=== PATIENT | female | born 1945 | race Caucasian/White ===

== ENCOUNTER 2023-12-02 08:48 | Emergency (ER) | payer MEDICARE, OTHER ==
[~2023-12-02] VITALS: Ht 167.6 cm; Wt 103.1 kg
[2023-12-02] MEDS ORDERED: SODIUM CHLORIDE 0.9% 500 ML IV ONE (09:00)
[2023-12-02] MEDS ORDERED: GLIPIZIDE ER2.5 MG PO (09:07)
[2023-12-02] MEDS ORDERED: MYCOPHENOLATE250 MG PO (09:07)
[2023-12-02] MEDS ORDERED: PREDNISONE5 MG PO (09:07)
[2023-12-02] MEDS ORDERED: ATORVASTATIN CA20 MG PO (09:07)
[2023-12-02] MEDS ORDERED: INDAPAMIDE1.25 MG PO (09:07)
[2023-12-02] MEDS ORDERED: VITAMIN D325 MCG (09:07)
[2023-12-02] MEDS ORDERED: CYCLOSPORINE M100 MG PO (09:07)
[2023-12-02] MEDS ORDERED: LOSARTAN POTASS50 MG PO (09:07)
[2023-12-02 09:15] LABS: BASOPHILS 0.6 % (0-2); EOSINOPHILS 0.9 % (0-6); HEMATOCRIT 42.6 % (35.0-50.0); HEMOGLOBIN 13.9 g/dL (12.0-18.0); MCH 28.9 (27-36); MCHC 32.5 g/dl (30-36); MCV 88.7 fl (81-99); MONOCYTES 5.8 % (0-12); NEUTROPHILS 60.7 % (39-80); PLATELET COUNT 213 K/uL (140-440); RDW 14.6 (10.5-15.0)
[2023-12-02] MEDS ORDERED: SODIUM CHLORIDE 0.9% 1,000 ML IV ONE ×2 (09:15→09:30)
[2023-12-02] MEDS ORDERED: LIDOCAINE 2% VISCOUS 6 ML SYR TOP ONE (09:15)
[2023-12-02] MEDS ORDERED: ondansetron HCL 4 MG/2 ML VIAL ONE (09:18)
[2023-12-02 09:25] LABS: ALBUMIN 3.1 g/dL (3.4-5.0); ALBUMIN/GLOBULIN RATIO 0.86 (1.1-2.4); ANION GAP 20.4 (7-21); BILIRUBIN, TOTAL 0.8 ng/dL (0.2-1.0); BUN/CREATININE RATIO 22.8 (6.0-28.6); CALCIUM 9.6 mg/dL (8.5-10.1); CREATININE, SERUM 2.28 mg/dL (0.55-1.02); POTASSIUM 4.4 mmol/L (3.5-5.1); PROTEIN, TOTAL 6.7 g/dL (6.4-8.2)
[2023-12-02] MEDS ORDERED: CEFTRIAXONE/SODIUM CHLORIDE 2 GM/100 ML PIGGYBACK IV ONE (09:30)
[2023-12-02 09:49] LABS: LACTIC ACID, BLOOD 3.9 mmol/L (0.4-2.0)
[2023-12-02 10:03] LABS: BASE EXCESS, BLOOD GAS -17.4 mmol/L (-2-2); HCO3, BLOOD GAS 14.6 mmol/L (22-26); O2 SATURATION, BLOOD GAS 97.9 % (95.0-100.0); PCO2, BLOOD GAS 62.7 mmHg (35-45); PH, BLOOD GAS 6.97 (7.35-7.45); TOTAL CO2, BLOOD GAS 16.6
[2023-12-02] MEDS ORDERED: AMIODARONE/DEXTROSE 100 ML IV ONE (11:00)
[2023-12-02] MEDS ORDERED: ETOMIDATE 40 MG/20 ML VIAL IV ONE (11:00)
[2023-12-02] MEDS ORDERED: EPINEPHrine HCL 1 MG/10 ML SYR IV SCH (11:00)
[2023-12-02] MEDS ORDERED: ROCURONIUM BROMIDE 50 MG/5 ML VIAL IV ONE (11:00)
[2023-12-02] MEDS ORDERED: NOREPINEPHRINE BITARTRATE 250 ML IV SCH (11:00)
[2023-12-02] MEDS ORDERED: EPINEPHrine HCL 4 MG in DEXTROSE 5% 250 ML IV SCH (11:00)
[2023-12-02] MEDS ORDERED: MAGNESIUM SULFATE 1 GM/2 ML VIAL IV ONE (11:00)
[2023-12-02] MEDS ORDERED: ALTEPLASE 100 MG/100 ML VIAL IV ONE (11:00)
[2023-12-02] MEDS ORDERED: AMIODARONE HCL 150 MG/3 ML VIAL IV ONE (11:00)
[2023-12-02] MEDS ORDERED: SODIUM BICARBONATE 50 MEQ/50 ML VIAL IV ONE (11:00)
[2023-12-02 11:48] LABS: PH, VENOUS 6.895 (7.31-7.41)
[2023-12-02 11:51] LABS: BASOPHILS 1.1 % (0-2); EOSINOPHILS 0.9 % (0-6); HEMOGLOBIN 11.5 g/dL (12.0-18.0); LYMPHOCYTES 27.5 % (24-44); MCH 28.3 (27-36); MCHC 29.5 g/dl (30-36); MONOCYTES 2.4 % (0-12); NEUTROPHILS 68.1 % (39-80); PLATELET COUNT 144 K/uL (140-440); RBC 4.06 M/ul (4.3-5.7); RDW 15.4 (10.5-15.0)
[2023-12-02 12:00] LABS: PROTIME 46.4 Sec (11.2-14.2)
[2023-12-02 12:06] LABS: INR 5.15 (0.80-1.30)
[2023-12-02 12:12] LABS: ALBUMIN 2.1 g/dL (3.4-5.0); ALBUMIN/GLOBULIN RATIO 0.81 (1.1-2.4); ANION GAP 20.3 (7-21); BILIRUBIN, TOTAL 0.5 ng/dL (0.2-1.0); BUN/CREATININE RATIO 19.74 (6.0-28.6); CALCIUM 7.8 mg/dL (8.5-10.1); CREATININE, SERUM 2.38 mg/dL (0.55-1.02); MAGNESIUM 1.7 mg/dL (1.8-2.4); POTASSIUM 4.3 mmol/L (3.5-5.1); PROTEIN, TOTAL 4.7 g/dL (6.4-8.2)
[2023-12-02 12:18] LABS: PARTIAL THROMBOPLASTIN TIME > 250.0 Sec (22.9-41.3)
[2023-12-02 13:51] VITALS: BP 00/00
[2023-12-02] MEDS ORDERED: ondansetron HCL 4 MG/2 ML VIAL IV ONE (14:15)
[2023-12-02] MEDS ORDERED: SODIUM CHLORIDE 0.9% 1,000 ML IV PRN (14:15)
--- NOTE | 2023-12-03 21:16 | EKG ---
[facility] [address] [facility] [place] [address] Signed Sinus tachycardia Rightward axis Low voltage QRS Incomplete right bundle branch block Nonspecific ST and T wave abnormality Abnormal ECG No previous ECGs available Confirmed by Tanya Mcknight MD () on 12/03/2023 9:16:02 PM Electronically Signed By: TANYA MCKNIGHT MD 12/03/232115 PATIENT NAME: OG PARK SHILO Electrocardiogram DATE OF : 49 PHYSICIAN: TANYA MCKNIGHT MD REPORT #: [id number] REPORT IS CONFIDENTIAL AND NOT TO BE RELEASED WITHOUT AUTHORIZATION
--- NOTE | 2023-12-03 21:17 | EKG ---
[facility] [address] [facility] [place], [place] [address] Signed Wide QRS rhythm Left axis deviation Right bundle branch block Possible Lateral infarct , age undetermined Abnormal ECG No previous ECGs available Confirmed by Tanya Mcknight MD () on 12/03/2023 9:16:59 PM Electronically Signed By: TANYA MCKNIGHT MD 12/03/232116 PATIENT NAME: OG PARK SHILO Electrocardiogram DATE OF : 49 PHYSICIAN: TANYA MCKNIGHT MD REPORT #: [id number] REPORT IS CONFIDENTIAL AND NOT TO BE RELEASED WITHOUT AUTHORIZATION
== END 2023-12-02 13:51 ==
LOC: ED 08:48
PROVIDERS: Emergency Medicine
DX: I26.99 Other pulmonary embolism without acute cor pulmonale (principal); Z94.0 Kidney transplant status; Z79.52 Long term (current) use of systemic steroids; Z79.84 Long term (current) use of oral hypoglycemic drugs; Z79.899 Other long term (current) drug therapy
CPT/HCPCS: 31500; 36415; 36600; 51702; 71045; 71260; 80048; 80053; 82803; 83605; 83735; 84484; 85025; 85060; 85379; 85610; 85730; 87040; 87088; 92950; 93005; 93010; 94002; 99291; C1894; J0282; J2405; J2997; J3475; J7030; Q9967